=== PATIENT | male | born 1990 | race Caucasian/White ===

== ENCOUNTER 2024-12-23 12:03 | Emergency (ER) | payer SELFPAY ==
--- OUTSIDE RECORDS SUMMARY | 2024-12-23 12:14 | XMS_ITS | Clinical Summary ---
Author Organization [facility] Address [address] [place] [address] Phone Care Team Providers Care [id number] Tank Driver Name Role Phone Kai Corcoran MD Primary Care Provider [phone] Allergies Active Allergy Reactions Criticality Noted Date Comments Ciprofloxacin Nausea 12/07/2018 Medications traMADol (ULTRAM) 50 MG Tablet Take 1-2 Tabs by mouth every 6 hours as needed for Moderate or more severe pain. 20 Tab 06/17/2019 Active Social History Tobacco Use Types Packs/Day Years Used Date Smoking Tobacco: Every Day Cigarettes 1 30 Smokeless Tobacco: Never Tobacco Cessation:Ready to Q uit: Not Asked; Counseling Given: Not Answered Alcohol Use Standard Drinks/Week Comments Yes 0 (1 standard drink = 0.6 oz pur e alcohol) socially Sex and Gender Information Value Date Recorded Sex Assigned at Not on file Legal Sex Male 10:17 PM CDT Gender Identity Not on file Sexual Orientation Not on file Last Filed Vital Signs Vital Sign Reading Time Taken Comments Blood Pressure 121/73 06/17/2019 1:13 AM CDT Pulse 82 06/17/2019 1:13 AM CDT Temperature 36.8 C (98.2 F) 06/17/2019 12:18 AM CDT Respiratory Rate 16 06/17/2019 1:13 AM CDT Oxygen Saturation 96% 06/17/2019 1:13 AM CDT Inhaled Oxygen Concentration - - Weight 59 kg (130 lb) 06/17/2019 12:18 AM CDT Height 172.7 cm (5' 8 ) 09/07/2023 9:40 AM CDT Body Mass Index 19.77 06/17/2019 12:18 AM CDT Plan of Treatment Health Maintenance Due Date Last Done Comments Hepatitis C Virus (HCV) Screening 1990 TdaP Immunization 1990 Hepatitis B Immunization (1 of 3 - 19+ 3-dose series) 2009 Pneumococcal Immunization Co mbined (1 of 2 - PCV) 2009 Influenza Immunization (#1) 2024 SARS-COV-2 Immunization ( - 2023- season) 2024 Respiratory Syncytial Virus (RSV) Immunization (Adult) (1 - 1-dose 75+ series) 2065 Meningococcal Immunization (ACWY) Aged Out No longer eligible based on patient's age to complete this topic Rotavirus Immunization Aged Out No lo nger eligible based on patient's age to complete this topic Insurance MEDICAID [place] Care Teams [id number]/[id number] Tank Driver Relationship Specialty Start Date End Date Kai Corcoran MD [address] [place] [address] [address] [place] [address] PCP - General Family Medicine 12/07/18
--- OUTSIDE RECORDS SUMMARY | 2024-12-23 12:14 | XMS_ITS | Clinical Summary ---
Author Organization [facility] Address [address] [place] [address] Care Team Providers Care Packing Inspector Name Role Phone Soumya García MD Primary Care Provi gin Allergies Active Allergy Reactions Criticality Noted Date Comments Ciprofloxacin Dizziness Low 09/17/2024 Medications naproxen (NAPROSYN) 500 mg tablet Take 1 tablet (500 mg total) by mouth 2 (two) times a day with meals 30 tablet 09/17/2024 Active HYDROcodone-acet aminophen (NORCO) 5-325 mg per tabletIndication s:Pain Take 1 tablet by mouth every 6 (six) hours as needed for pain 8 tablet 09/17/2024 Active Medical History Medical History Date Comments Hx Other Medical Headache, migra ine Family History Medical History Relation Name Comments Diabetes type II Mother Diabetes me llitus type 2; Relation Name Status Comments Mother Social History Tobacco Use Types Packs/Day Years Used Date Smoking Tobacco: Heavy Smoker Comments:Smoking History Pac ks/day: 10 Cigarettes Alcohol Use Standard Drinks/Week Comments Yes 0 (1 standard drink = 0.6 oz pur e alcohol) Personal Safety Answer Date Recorded Have you ever been in or are you currently in a harmful physical or emotional relationship or is someone making you feel afraid or unsafe? Denies 09/17/2024 Sex and Gender Information Value Date Recorded Sex Assigned at Not on file Legal Sex Male 3:21 AM HONEY LIQUEFIER Gender Identity Not on file Sexual Orientation Not on file Obstetrics History Last Filed Vital Signs Vital Sign Reading Time Taken Comments Blood Pressure 130/79 09/17/2024 8:37 PM HONEY LIQUEFIER Pulse 68 09/17/2024 8:37 PM HONEY LIQUEFIER Temperature 37.7 C (99.9 F) 09/17/2024 8:37 PM HONEY LIQUEFIER Respiratory Rate 18 09/17/2024 8:37 PM HONEY LIQUEFIER Oxygen Saturation 98% 09/17/2024 8:37 PM HONEY LIQUEFIER Inhaled Oxygen Concentration - - Weight 61.2 kg (135 lb) 09/17/2024 8:37 PM HONEY LIQUEFIER Height 175.3 cm (5' 9 ) 09/17/2024 8:37 PM HONEY LIQUEFIER Body Mass Index 19.94 09/17/2024 8:37 PM HONEY LIQUEFIER Plan of Treatment Health Maintenance Due Date Last Done Comments Depression Screening 1990 Hepatitis C Screening 1990 Pneumococcal vaccine <65 (1 of 2 - PCV) 1996 DTaP/Tdap/Td Vaccine (1 - Tdap) 2001 Varicella Vaccines (1 of 2 - 13+ 2-dose series) 2003 Hepatitis B Screening 2008 Regular Well Visit/Exam 18-64 2008 Influenza Vaccine (#1) 2024 HPV Vaccines Aged Out No longer eligi ble based on patient's age to complete this topic Insurance [employer] Care Teams Packing Inspector Relationship Specialty Start Date End Date Soumya García MD [address] [place] [address] PCP - General 06/29/14
--- OUTSIDE RECORDS SUMMARY | 2024-12-23 12:14 | XMS_ITS | Referral Summary ---
Author Organization [facility] Address [address] [place] [address] Care Team Providers Care Stretch Box Tender Name Role Phone Soumya García MD Primary [...] needed for pain 8 tablet 09/17/2024 Active Social History Tobacco Use Types Packs/Day [...] on file Legal Sex Male 3:21 AM HAT BRAIDER Gender Identity Not on file Sexual Orientation Not on file Last Filed Vital Signs Vital Sign Reading Time Taken Comments Blood Pressure 130/79 09/17/2024 8:37 PM HAT BRAIDER Pulse 68 09/17/2024 8:37 PM HAT BRAIDER Temperature 37.7 C (99.9 F) 09/17/2024 8:37 PM HAT BRAIDER Respiratory Rate 18 09/17/2024 8:37 PM HAT BRAIDER Oxygen Saturation 98% 09/17/2024 8:37 PM HAT BRAIDER Inhaled Oxygen Concentration - - Weight 61.2 kg (135 lb) 09/17/2024 8:37 PM HAT BRAIDER Height 175.3 cm (5' 9 ) 09/17/2024 8:37 PM HAT BRAIDER Body Mass Index 19.94 09/17/2024 8:37 PM HAT BRAIDER Plan of Treatment Not on file Insurance [employer] Care Teams Stretch Box Tender Relationship Specialty Start Date End Date Soumya García MD [address] [place] [address] PCP - General 06/29/14
[2024-12-23 12:26] VITALS: BP 138/83; PULSE 70; RESP 16; TEMP 36.8; O2SAT 99
--- NOTE | 2024-12-23 13:59 | ED_ITS ---
HPI - General Adult General Chief complaint: Dental/Oral Stated complaint: facial swelling Source: patient Limitations: no limitations History of Present Illness HPI narrative: Patient presents for evaluation of left upper dental pain. Symptom onset yesterday. He woke from sleep this morning with left-sided facial swelling. He indicates he fractured several teeth in the area in which he is experiencing pain several years ago. Reports chills but denies any fever, nausea, vomiting diarrhea. He smokes 1 pack per day. He is not taking any medication for symptoms. Related Data Allergies Allergy/AdvReac Type Severity Reaction Status Date / Time ciprofloxacin (From Cipro) Allergy Unknown Unknown Verified 12/23/24 12:25 Review of Systems Review of Systems: CONSTITUTIONAL: Reports chills. Denies fever or sweats. EYES: Denies visual changes, redness, or discharge. ENT: Reports left upper dental pain with left-sided facial swelling CARDIOVASCULAR: Denies chest pain, palpitations, or edema. RESPIRATORY: Denies cough or dyspnea. GASTROINTESTINAL: Denies abdominal pain, nausea, vomiting, or diarrhea. GENITOURINARY: Denies dysuria or hematuria. SKIN: Denies rash or itching. MUSCULOSKELETAL: Denies back pain, joint pain, or myalgia. NEUROLOGIC: Denies headache, numbness, dizziness, or weakness. PSYCHIATRIC: Denies anxiety or depression. [facility] Past Medical History Medical History No pertinent past medical history Surgical History Surgical History Past surgical history of mastectomy Family History Family History Mother Family history non-contributory Social History Social History Smoking packs per day: 1 Smoking cigarettes per day: 20.0 Smoking status: Current every day smoker Tobacco type: cigarettes Living arrangements: with family Gender identity (if verbalized by the patient): Male Spiritual care concerns: No Exam Narrative: GENERAL: Well-appearing, well-nourished, and in no acute distress. HEAD: There is left sided maxillary facial swelling EYES: PERRLA and EOMI. ENT: Nares clear, no rhinorrhea or epistaxis. Mucous membranes moist. There are several fractured teeth that are eroded to the gumline. There is no pulp or visible dental abscess. Oropharynx without tonsillar hypertrophy exudate or other lesions. Bilateral TMs pearly kothari nonbulging NECK: Supple. No adenopathy or masses. No carotid bruits or JVD CHEST: Clear to auscultation. No respiratory distress. No wheezes rales or rhonchi HEART: Regular rate and rhythm. No murmur heard. Normal peripheral pulses. ABDOMEN: Soft, nontender, nondistended, normal active bowel sounds. EXTREMITIES: Normal range of motion. No edema. SKIN: Warm, dry, no rash. NEURO: No focal deficits. Alert and oriented x3. PSYCH: Normal mood and affect. Course Course Emergency Course: This is a 34-year-old male who presented for evaluation of left upper dental pain and facial swelling. There is no visible or palpable abscess on exam. Will treat with penicillin. Ibuprofen for pain. Follow-up with dentist. Go to the ER for worsening symptoms. Advised on smoking cessation. Patient in agreement with of care. Level of Care: Express Care Visit Vital Signs Vital signs: Vital Signs Temperature 36.8 C 12/23/24 12: Pulse Rate 70 12/23/24 12: Respiratory Rate 16 12/23/24 12: Blood Pressure 138/83 12/23/24 12:26 Pulse Oximetry 99 12/23/24 12:26 Oxygen Delivery Room Air 12/23/24 12: Temperature 36.8 C 12/23/24 12: Pulse Rate 70 12/23/24 12:26 Respiratory Rate 16 12/23/24 12:26 Blood Pressure 138/83 12/23/24 12:26 Pulse Oximetry 99 12/23/24 12:26 Oxygen Delivery Room Air 12/23/24 12:26 Medical Decision Making Vital Signs Vital Signs: Vital Signs Temperature 36.8 C 12/23/24 12: Pulse Rate 70 12/23/24 12:26 Respiratory Rate 16 12/23/24 12: Blood Pressure 138/83 12/23/24 12: Pulse Oximetry 99 12/23/24 12:26 Oxygen Delivery Room Air 12/23/24 12: Temperature 36.8 C 12/23/24 12:26 Pulse Rate 70 12/23/24 12:26 Respiratory Rate 16 12/23/24 12:26 Blood Pressure 138/83 12/23/24 12:26 Pulse Oximetry 99 12/23/24 12:26 Oxygen Delivery Room Air 12/23/24 12:26 Discharge Plan Discharge Clinical Impression: Fracture of tooth, Dental infection Patient Disposition: Home, Self-Care Condition: Stable Instructions: Antibiotic Form, Toothache (ED) Patient Language: Portuguese Prescriptions: New penicillin V potassium 500 mg tablet 500 mg PO Q6H 10 Days Qty: 40 0RF ibuprofen 800 mg tablet 800 mg PO TID PRN (Reason: pain) Qty: 30 0RF Follow-up/Referrals: Loly Turner DO [Physician] - Time of Disposition: 13:58
== END 2024-12-23 14:13 | disposition home or self-care (01) ==
PROVIDERS: Emergency Provider Nurse Practitioner
DX: S02.5XXA Fracture of tooth (traumatic), initial encounter for closed fracture (principal); X58.XXXA Exposure to other specified factors, initial encounter; K04.7 Periapical abscess without sinus; F17.210 Nicotine dependence, cigarettes, uncomplicated
CPT/HCPCS: 99203; G0463